=== PATIENT | female | born 1995 | race Two or more races ===

== ENCOUNTER 2016-12-31 03:22 | Emergency (ER) | payer SELFPAY ==
[~2016-12-31] VITALS: Ht 160 cm; Wt 72.6 kg
[2016-12-31] MEDS ORDERED: XANAX0.25 MG ORAL (03:37)
[2016-12-31 03:53] LABS: KETONES,URINE NEGATIVE (NEGATIVE); LEUKOCYTE ESTERASE ,URINE 3+ (NEGATIVE); NITRITE,URINE NEGATIVE (NEGATIVE); PH,URINE 6 (4.5-8.0); PROTEIN,URINE 2+ (NEGATIVE); UROBILINOGEN,URINE 1 MG/DL (0.0-1.0)
[2016-12-31 04:04] LABS: APPEARANCE,URINE SLIGHTLY CLOUDY
[2016-12-31 04:06] LABS: BACTERIA,URINE FEW /HPF; RBC,URINE TNTC /HPF (0 - 2); SQUAMOUS EPITHELIAL CELL,UR MODERATE /LPF (NONE/OCC); WBC,URINE 30-40 /HPF (0 - 2)
[2016-12-31] MEDS ORDERED: ALPRAZolam 0.5mg tab ORAL ONE (05:00)
[2016-12-31 05:17] LABS: BASOPHILS % (AUTO) 1.2 % (0.0-2.0); EOSINOPHILS % (AUTO) 4.6 % (0.0-3.0); LYMPHOCYTES % (AUTO) 44.7 % (20.0-45.0); MEAN CORPUSCULAR HEMOGLOBIN 29.3 PG (27.0-31.0); MEAN CORPUSCULAR HGB CONC 34.5 G/DL (32.0-36.0); MEAN CORPUSCULAR VOLUME 85 FL (80-99); MEAN PLATELET VOLUME 7.9 FL (6.5-10.1); MONOCYTES % (AUTO) 4.4 % (1.0-10.0); NEUTROPHILS % (AUTO) 45.1 % (45.0-75.0); PLATELET COUNT 325 K/UL (150-450); RED BLOOD COUNT 4.91 M/UL (4.20-5.40); RED CELL DISTRIBUTION WIDTH 11.8 % (11.6-14.8); WHITE BLOOD COUNT 9.5 K/UL (4.8-10.8)
[2016-12-31 05:25] VITALS: BP 127/56
[2016-12-31] MEDS ORDERED: NITROFURANTOIN100 M2 ORAL (05:57)
[2016-12-31 06:05] VITALS: BP 127/56
--- NOTE | 2016-12-31 12:37 | Diagnostic Imaging Report ---
Indication: PAIN other urine test, bleeding Technique: Transabdominal and transvaginal images Comparison: None Findings: Uterus measures 7.8 cm in length by 3.3 cm AP. The endometrium measures 5 mm thick. No intrauterine demonstrated. No myometrial abnormality. Right ovary measures 3.1 cm length. Left ovary measures 2.4 cm length. No adnexal mass. No free cul-de-sac fluid Impression: No intrauterine demonstrated. Differential considerations include spontaneous , very early and therefore not visible , ectopic . Correlate with serial beta hCGs, consider followup sonography as indicated Negative for adnexal mass
--- NOTE | 2017-01-01 07:18 | Emergency Room Report ---
History of Present Illness General Chief Complaint: Female Urogenital Problems Present Illness HPI 21YOF walk-in with cramps and passing blood clots and "shrimp-looking" material from vagina. Symptoms started tonight LMP was 6 weeks ago, sexually active Usually regular menstrual period Denies other urinary complaints, abd pain, nausea/vomiting Never been before Used 2-3 pads only today Allergies: Coded Allergies: PENICILLINS (Verified Allergy, Unknown, 12/31/16) Patient History Past Medical History: none Past Surgical History: none Pertinent Family History: none Social History: Denies: smoking, alcohol use, drug use Last Menstrual Period: "a month and half ago" Now: No : 0 Immunizations: UTD Reviewed Nursing Documentation: PMH: Agreed, PSxH: Agreed Review of Systems All Other Systems: negative except mentioned in HPI Physical Exam Vital Signs Date Time Temp Pulse Resp B/P (MAP) Pulse Ox O2 Delivery O2 Flow Rate FiO2 12/31/16 03:28 97.5 93 18 120/75 98 Room Air Sp02 EP Interpretation: reviewed, normal General Appearance: normal inspection, well appearing, no apparent distress, alert, GCS 15, non-toxic Head: normocephalic, atraumatic Eyes: bilateral eye PERRL, bilateral eye EOMI ENT: normal ENT inspection, hearing grossly normal, normal voice Neck: normal inspection, full range of motion, supple, no bony tend Respiratory: normal inspection, lungs clear, normal breath sounds, no respiratory distress, no retraction, no wheezing Cardiovascular #1: regular rate, rhythm, no edema Gastrointestinal: normal inspection, normal bowel sounds, non tender, soft, no guarding, no hernia Genitourinary: no CVA tenderness, other - No dionne vaginal hemorrhage currently Musculoskeletal: normal inspection, back normal, normal range of motion, Amadeo' s Sign negative Neurologic: normal inspection, alert, oriented x3, responsive, fish boning machine feeder III-XII nml as tested, motor strength/tone normal, speech normal Psychiatric: normal inspection, judgement/insight normal, mood/affect normal Skin: normal inspection, normal color, no rash Medical Decision Making Diagnostic Impression: Primary Impression: Vaginal bleeding ER Course VSS. Afebrile Very well appearing Urine preg + UA with infection vs contamination Pelvic sono: verbal report from tech - no obvious retained POCs. No active bleeding on probe or during procedure. No free fluid. No IUP Beta HCG ~200 While here patient vehement about taking her Xanax for "panic attack" because she got nervous. I strongly advised xanax not appropriate given ?early IUP but patient clearly having panic/anxiety attack and would not sit for lab analysis, pelvic sono She said she understands possible risk to IUP if taking benzos Ddx includes spontaneous vs ectopic vs early IUP Gave copy of beta HCG result She understands in 2-3 days to get repeat beta HCG and sono She will be given Rx for Macrobid for ?UTI Advised STOP smoking and using benzos if she is serious about getting Return to ER for worsening vaginal bleeding, severe pain, other concerns Last Vital Signs Date Time Temp Pulse Resp B/P (MAP) Pulse Ox O2 Delivery O2 Flow Rate FiO2 12/31/16 06:05 97.5 103 19 127/56 100 Room Air Status: improved Disposition: HOME, SELF-CARE Condition: Improved Scripts Nitrofurantoin Monohyd/M-Cryst* (MACROBID 100 MG*) 100 Mg Capsule 100 MG ORAL EVERY 12 HOURS for 7 Days, #14 CAP Prov: SHERIN CASTRO M.D. 12/31/16 Patient Instructions: Pelvic Rest, Miscarriage, [id number] Additional Instructions: - Take ALL antibiotics for treatment of urinary tract infection - Your beta-HCG is 228. Please followup with an Tarper or primary doctor to recheck beta-hCG in 3 days OR return here to ED on or Sun to recheck beta-HCG SHREIN CASTRO M.D. Jan 01, 2017 07:18
== END 2016-12-31 06:05 | disposition home or self-care (01) ==
LOC: EMR 04:00
DX: N93.9 Abnormal uterine and vaginal bleeding, unspecified (principal); Z88.0 Allergy status to penicillin
CPT/HCPCS: 36415; 76830; 76856; 81003; 81025; 84702; 85025; 87086; 99283